=== PATIENT | male | born 1975 | race Caucasian/White ===

== ENCOUNTER 2023-08-30 08:25 | Inpatient (IN) ==
--- NOTE | 2023-08-03 10:00 | PAT Medication Instructions ---
Medication Instructions Date of Service August 03, 2023 Home Medications amlodipine 5 mg tablet 5 mg PO QAM atorvastatin 20 mg tablet 20 mg PO QAM losartan 50 mg-hydrochlorothiazide 12.5 mg tablet 1 tab PO QAM meloxicam 15 mg tablet 15 mg PO QAM multivitamin with minerals-folic acid 200 mcg chewable tablet (Multivitamin Gummies) 1 tab PO QAM pantoprazole 40 mg tablet,delayed release (Protonix) 40 mg PO QAM ASK your surgeon for instructions meloxicam 15 mg tablet 15 mg PO QAM DO NOT take the morning of surgery losartan 50 mg-hydrochlorothiazide 12.5 mg tablet 1 tab PO QAM multivitamin with minerals-folic acid 200 mcg chewable tablet (Multivitamin Gummies) 1 tab PO QAM Take morning of surgery With a small sip of water, OTHERWISE NOTHING TO EAT OR DRINK AFTER MIDNIGHT: amlodipine 5 mg tablet 5 mg PO QAM atorvastatin 20 mg tablet 20 mg PO QAM pantoprazole 40 mg tablet,delayed release (Protonix) 40 mg PO QAM Other Notes If you have any questions please call us at [phone] or [phone] or [phone] or [phone]
--- NOTE | 2023-08-09 11:52 | Anesthesiology Consultation ---
Date of Service August 09, 2023 Assessment & Plan (1) Encounter for pre-operative examination: - PCP pre-operative evaluation 08/14/23 [facility]. Chart Review Chart Review: Pending: Refer to Additional Notes / Consult section and Patient seen in Pre Admission Testing Teaching & Discussion Pre-Anesthesia Teaching/Discussion Notes: Instructed NPO after midnight before surgery, except medications with 15 cc of water. Medication instructions provided according to the PAT guidelines. History Surgery Operation Date: 08/30/23 07:45 Proposed Procedures p L3-L4 and L5-S1 Decompression, L3-S1 Fusion, Spinal Cord Monitoring - Roney Louise DO Height/Weight Height: 5 ft 5 in Weight: 85.7 kg Allergies Allergy/AdvReac Type Severity Reaction Status Date / Time No Known Allergies Allergy Unverified 08/01/23 09:34 Medications Home Medications Medication Instructions Recorded Confirmed Last Taken amlodipine 5 mg tablet 5 mg PO QAM 08/01/23 08/01/23 Unknown atorvastatin 20 mg tablet 20 mg PO QAM 08/01/23 08/01/23 Unknown losartan 50 mg-hydrochlorothiazide 1 tab PO QAM 08/01/23 08/01/23 Unknown 12.5 mg tablet meloxicam 15 mg tablet 15 mg PO QAM 08/01/23 08/01/23 Unknown multivitamin with minerals-folic 1 tab PO QAM 08/01/23 08/01/23 Unknown acid 200 mcg chewable tablet (Multivitamin Gummies) pantoprazole 40 mg tablet,delayed 40 mg PO QAM 08/01/23 08/01/23 Unknown release (Protonix) Past Medical History Medical History GERD (gastroesophageal reflux disease) controlled, stable per pt Hyperlipidemia HTN (hypertension) controlled, stable per pt [place] (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 History of perforated ear drum repaired Patient denies h/o stroke, seizures, heart attack, heart failure, DM, blood cl ots/DVTs or blood transfusions. Exercise / Class Metabolic Activity II 4-5 Yardwork/Stairs/Walk up hill (denies chest discomfort or shortness of breath with 1 FOS) Past Family History Family History Other No family history of adverse response to anesthesia Past Surgical History Surgical History History of surgery left tympanic membrane repair History of esophagogastroduodenoscopy (EGD) History of surgery on wrist radial artery puncture repaired History of lumbar discectomy Hx of arthroscopy of shoulder R/L Past Anesthesia History No Hx of Anesthesia Complications and No Family Hx of Anesthesia Complications History of PONV No Hx of PONV and No Hx of Motion Sickness Social History Smoking Status: Never smoker Do You Dip or Chew Tobacco: No Hx Alcohol Use: Yes alcohol intake frequency: a few times a week Hx Substance Use: No substance use type: does not use Review of Systems Snoring, denies witnessed apneas. Patient denies chest pain, shortness of breath, dyspnea on exertion, fever, chills, cough, wheezing, or palpitations. Physical Exam Vital Signs Vitals BP 133/87 P 86 TEMP 98.2 SP02 96% on RA RESP 17 Physical Patient resting comfortably in chair in no acute distress, alert and oriented, responding appropriately throughout visit Full cervical extension range of motion without pain TMD 3.5 finger breadths Mallampati Score 2 Dentition: intact, denies chipped or loose teeth, caps/crowns, implants or bridges Lungs: normal respiratory effort. Good air movement, clear throughout to auscultation, no adventitious breath sounds Cardiac: regular rate and rhythm, no murmurs noted Carotid arteries: negative bruit bilat Lab Results Anesthesia Preop Results Results Anesthesia Widget: WBC 7.75 K/ul (4.8-10.8) 08/09/23 Hgb 15.9 g/dl (14.0-18.0) 08/09/23 Hct 44.4 % (42.0-52.0) 08/09/23 Plt 223 K/uL (130-400) 08/09/23 PT 11.3 Seconds (9.0-12.0) 08/09/23 PTT 32.4 Seconds (21.0-31.0) H 08/09/23 INR 1.0 (0.9-1.1) 08/09/23 Urine Color Yellow 08/09/23 Urine Appearance Clear (Clear) 08/09/23 Urine pH 6.0 (4.5-7.5) 08/09/23 Urine Specific [place] 1.006 (1.000-1.030) 08/09/23 Urine Protein Negative (Negative) 08/09/23 Urine Glucose (UA) Negative (Negative) 08/09/23 Urine Ketones Negative (Negative) 08/09/23 Urine Blood Negative (Negative) 08/09/23 Urine Nitrite Negative (Negative) 08/09/23 Urine Bilirubin Negative (Negative) 08/09/23 Urine Urobilinogen Negative (Negative) 08/09/23 Urine Leukocyte Esterase Negative (Negative) 08/09/23 Blood Type O Negative 08/09/23 Antibody Screen NEGATIVE 08/09/23 Testing Laboratory Results 07/27/2023 SODIUM: 138 POTASSIUM: 3.7 CHLORIDE: 101 CO2: 25 BUN: 18 CREATININE: 1 GLUCOSE: 87 Electrocardiogram Date: 08/09/23 NSR, rate 83 bpm Chest X-Ray Date: 08/09/23 No active disease in the chest. Other Testing Carotid doppler 03/01/18 Normal evaluation of ICAs
[~2023-08-30 08:25] MED LIST: ACETAMINOPHEN 500 MG TAB PO SCH; CeleBREX 200 MG CAP PO SCH; DEXAMETHASONE SOD INJ 4 MG/ML VIAL ONE; GABAPENTIN 900 MG DOSE PO SCH; LIDOCAINE 2% 2 ML VIAL/AMP(20MG/ML) INFIL ONE; LR 15ML/HR IV SCH; LR 60ML/HR IV SCH; MIDAZOLAM HCL 1 MG/ML 2ML VIAL ONE; ONDANSETRON INJ 2 MG/ML 2 ML VIAL ONE; PROPOFOL IV EMULSION 10 MG/ML 20 ML VIAL IV ONE; fentaNYL citrate PF 100 MCG/2 ML VIAL ONE
[2023-08-30] MEDS ORDERED: SUGAMMADEX SODIUM 200 MG/2 ML VIAL IV ONE (08:52)
--- NOTE | 2023-08-30 09:57 | History & Physical Bridge Note ---
Date of Service August 30, 2023 History & Physical Bridge Note I have examined the patient, reviewed the History & Physical and in the interval since the performance of the History & Physical I have noted the following changes of clinical significance: no changes noted
--- NOTE | 2023-08-30 09:58 | History & Physical Report ---
Date of Service August 30, 2023 Assessment & Plan (1) Neurogenic claudication due to lumbar spinal stenosis: Plan: L3-L4 and L5-S1 decompression, L5-S1 fusion, instrumentation posterior segments 3-6 vertebral segments laminectomy decompression spinal cord single vertebral segment lumbar History of Present Illness Chief Complaint: Back and bilateral leg pain Primary Care Provider: Mundo Luque MD This is a 47-year-old male presents for chronic persistent back and leg pain after failing course of nonoperative care is here for surgical invention. Allergies Allergy/AdvReac Type Severity Reaction Status Date / Time No Known Allergies Allergy Verified 08/30/23 09:07 Home Medications Medication Instructions Recorded Confirmed Type amlodipine 5 mg tablet 5 mg PO QAM 08/01/23 08/30/23 History atorvastatin 20 mg tablet 20 mg PO QAM 08/01/23 08/30/23 History losartan 50 mg-hydrochlorothiazide 1 tab PO QAM 08/01/23 08/30/23 History 12.5 mg tablet meloxicam 15 mg tablet 15 mg PO QAM 08/01/23 08/30/23 History multivitamin with minerals-folic 1 tab PO QAM 08/01/23 08/30/23 History acid 200 mcg chewable tablet (Multivitamin Gummies) pantoprazole 40 mg tablet,delayed 40 mg PO QAM 08/01/23 08/30/23 History release (Protonix) Past Med/Surg History Medical History GERD (gastroesophageal reflux disease) controlled, stable per pt Hyperlipidemia HTN (hypertension) controlled, stable per pt [place] (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 History of perforated ear drum repaired Surgical History History of surgery left tympanic membrane repair History of esophagogastroduodenoscopy (EGD) History of surgery on wrist radial artery puncture repaired History of lumbar discectomy Hx of arthroscopy of shoulder R/L Family History Other No family history of adverse response to anesthesia Social History Smoking Status: Never smoker Second Hand Exposure: No; Do You Dip or Chew Tobacco: No; Tobacco Cessation Education Requested by Patient: No Hx Alcohol Use: Yes Hx Substance Use: No Preferred Language: Danish Communication Ability: Effective Jail Officer Required: No Beliefs That Will Affect Care: None Current Living Situation: Spouse Other Information That Helps Us Care for You: No Feels Safe at Home: Yes Safety Concerns: Feels Safe At This Time Assistive Devices: Glasses and Hearing Aid - Bilateral Assistive Devices Comment: deaf in his left ear Physical Exam Physical Exam: Patient is alert and oriented Heart regular rhythm Lungs clear Results & Data Results & Data Vital Signs (Past 12 Hours) Vital Signs Temp Pulse Resp BP Pulse Ox O2 Del Method 08/30/23 08:49 36.5 C 95 H 20 151/93 H 96 Room Air
[2023-08-30] MEDS ORDERED: ceFAZolin 330 MG/ML 1 GM VIAL ONE (10:13)
[2023-08-30] MEDS ORDERED: BUPIVACAINE/EPINEPHRINE 0.25% 1:200,000 30 ML VIAL ONE (10:13)
[2023-08-30] MEDS ORDERED: Nursing to Pharmacy Communication SCH (10:15)
[2023-08-30] MEDS: ceFAZolin 2,000 MG/15 ML IV PUSH IV ONE (10:20)
[2023-08-30] MEDS ORDERED: NALOXONE HCL 0.4 MG/1 ML VIAL/CARP IV PRN ×2 (10:42→14:09)
[2023-08-30] MEDS ORDERED: HYDROmorphone INJ 1 MG/ML SYRINGE IV PRN ×2 (10:42→14:09)
[2023-08-30] MEDS ORDERED: ATROPINE SULFATE 0.1 MG/ML 10ML SYR IV PRN (10:42)
[2023-08-30] MEDS ORDERED: PROMETHAZINE HCL 12.5 MG in SODIUM CHLORIDE 0.9% 50 ML IV PRN ×2 (10:42→14:09)
[2023-08-30] MEDS ORDERED: fentaNYL citrate PF 100 MCG/2 ML VIAL IV PRN (10:42)
[2023-08-30] MEDS ORDERED: ePHEDrine sulfate 50 MG/ML AMP IV PRN (10:42)
[2023-08-30] MEDS ORDERED: ONDANSETRON INJ 2 MG/ML 2 ML VIAL IV PRN ×2 (10:42→14:09)
[2023-08-30] MEDS ORDERED: FLUMAZENIL 0.1 MG/1 ML 10 ML VIAL IV PRN (10:42)
[2023-08-30] MEDS ORDERED: LABETALOL HCL IV 5 MG/ML 20ML IV PRN (10:42)
[2023-08-30] MEDS ORDERED: FLOSEAL HEMOSTATIC MATRIX 10ML TOP ONE (10:59)
[2023-08-30] MEDS ORDERED: ceFAZolin 2000MG 2,000 MG/15 ML SYR IV ONE (11:03)
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
--- OUTSIDE RECORDS SUMMARY | 2023-08-30 11:53 | External Medical Summary | Summary of Care ---
Author Name Unknown Organization [facility] Address [address] [facility] [place] [address] Phone [phone] Care Team Providers Care Director Emergency Services Name Role Phone Mundo Luque MD Primary Care Provider Encounter Details Date Type Department Care Team (Late st Contact Info) Description 08/14/2023 Telephone [facility] [address] [place] [phone] Patsy Ramírez MD [facility] [place] [id number] Allergies No known active allergiesdocumented as of [...] on file documented as of this encounter Miscellaneous Notes * Telephone Encounter - Arelis Mak OSA - 08/15/2023 10:29 AM EST Pre op note as requested to [phone] Fax back ok * Telephone Encounter - Patsy Ramírez MD - 08/15/2023 10:22 AM EST Reviewed. Please fax preop clearance note 08/14/23 to [facility] * Telephone Encounter - Meron Rubio OSA - 08/15/2023 10:00 AM EST Received via fax and given to Dr. Ramírez for review. * Telephone Encounter - Kimber Ferreira LPN - 08/15/2023 8:41 AM EST Spoke to preadmission testing at [facility]. They will fax over results to [phone]. * Telephone Encounter - Patsy Ramírez MD - 08/14/2023 3:51 PM EST Please get preop EKG/chest Xray/labs results (done at [facility] last week) and place it on my desk. documented in this encounter Plan of Treatment Upcoming Encounters Date Type Department Care Team (Late st Contact Info) Description 11/23/2023 11:00 AM EST Office Visit Otolaryngology/Head & Neck/Facial Plastic Surgery [address] [place] [address] Naga Weiss MD [address] [place] [address] 08/02/2024 2:40 PM EST Office Visit [facility] [address] [place] [id number] Mundo Luque MD [address] [place] [address] Health Maintenance Due Date Last Done Comments [...] Not on filedocumented as of this encounter Care Teams Director Emergency Services Relationship Specialty Start Date End Date Mundo Luque MD [address] [place] [id number] PCP - General Family Medicine 09/27/21 documented as of this encounter
[2023-08-30] MEDS ORDERED: ALBUMIN HUMAN 5% 12.5 GM/250 ML VIAL IV ONE (12:20)
[2023-08-30] MEDS ORDERED: HYDROmorphone INJ 2 MG/ML SYR/VIAL ONE (12:47)
--- NOTE | 2023-08-30 12:49 | Operative Report ---
Post Operative Report Pre & Post Diagnosis Operation Date: 08/30/23 10:05 Pre-Op Diagnosis: Neurogenic claudication due to lumbar spinal stenosis Post-Op Diagnosis: Neurogenic claudication due to lumbar spinal stenosis I identified the patient and participated in the time-out.: Yes Procedure Operation Date: 08/30/23 10:05 Actual Procedures #1 revision lumbar decompression bilateral medial facetectomies and foraminotomies of to L3, L3-L4, L4-5 and L5-S1. #2 posterior spinal fusion L3- S1. #3 placed posterior segmental instrumentation L3-S1. #4 interbody fusion L3-L4 L5-S1. #5 placement Spira 12 x 26 mm at L3-L4 and 11 x 26 mm x 2 at L5- S1. #6 placement locally harvested morselized autograft in the posterior gutters. #7 placement of I factor in the interbody space and infuse collagen sponge combined with master graft in the posterior lateral gutters. Surgeon Roney Louise, DO Tripper Faye Colón Estimated Blood Loss 350 Findings See Below The patient is 5 foot 5 weighing over 84 kg with a BMI in excess of 31. Patient's body was did contribute to significant technical difficulty required deeper retractors longer instruments in order to perform his procedure. This at least 50% increased operative time. Specimens None Indications This is a 47-year-old male who presents above-mentioned diagnosis after failing conservative course of nonoperative care is here for surgical invention. Description of Procedure Patient was met with identified informed consent obtained. Patient was then taken to the operative suite underwent patient placed in a prone position on the Will table atop the Fadi frame. All bony promises well-padded eyes inspected to ensure no external pressure placed upon the. This point lumbar spine was prepped and draped in a sterile fashion. Sharp dissection with assistance bradycardia from down to and exposing the lamina and transverse processes of L3 L4-5 and the sacral ala bilaterally. From caudal cephalad fashion revision complete laminectomy of L5 4 3 partial laminectomy of L2 was performed including bilateral medial facetectomies and foraminotomies addressing severe spinal stenosis. Bilateral pars defect at L3 was noted. Pedicle screws were then placed at L3 L4-5 and S1 levels bilaterally with assistance of fluoroscopy and the appropriately sized martha placed. By way the transforaminal approach the left discectomy of L5-S1 was performed endplates guided to subcortical bleeding bone and a 11 x 26 mm Spira cage with I factor tapped in position. Then proceeded to the right side transforaminal approach completed the discectomy at L5-S1 curetted the endplates to subcortical bleeding bone and placed a second 11 x 26 mm Spira cage with I factor into position. Then proceeded to L3-L4 and by way of transforaminal approach and right complete discectomy was performed endplates guided to subcortical bleeding bone and a 12 x 26 mm Spira cage with I factor tapped the position. The rods were then locked in final position bilaterally. The transverse processes of L3 L4-5 and the sacral ala burred to subcortical bleeding bone. Infuse collagen sponge, mass graft local autograft was placed in the posterior gutters. 15 round TIFFANIE drain inserted. The incision was then closed with 1 Vicryl the fascia 2-0 Vicryl subcutaneously and 4 Monocryl for final skin closure. Steri-Strips dressing placed. Patient waken taken to PACU stable condition. Please note spinal cord monitoring was utilized at the procedure no changes noted. Lastly Faye Colón was present at the entire surgeon while the patient positioning complex portion of the surgery and final skin closure. I attest to the content of the Intraoperative Record and any orders documented therein. Any exceptions are noted below.
--- NOTE | 2023-08-30 13:01 | Fluoroscopy Report ---
FL lumbar spine 2-3V CLINICAL HISTORY: L3-L4 AND L5-S1 DECOMPRESSION AND FUSION COMPARISON STUDY: 02/24/2014 FLUOROSCOPY TIME: 31.3 seconds FLUOROSCOPY IMAGES: 2 EXPOSURE DOSE: 21.49 mGy FINDINGS: Posterior interbody rods and screw fusion hardware L3-S1 with L3-L4 and L5-S1 discectomy. H ardware appears intact. No acute fracture or unexpected opaque foreign body. IMPRESSION: Fluoroscopic assistance as above. ACT 112: Negative or not required by law. Electronically signed by: Aquiles Haywood M.D. 08/30/2023 12:59 PM
[2023-08-30] MEDS ORDERED: ALUMINUM/MAGNESIUM SUSP 30 ML UDC PO PRN (14:09)
[2023-08-30] MEDS ORDERED: HYDROmorphone INJ 0.5 MG/0.5 ML SYR IV PRN (14:09)
[2023-08-30] MEDS ORDERED: ONDANSETRON 4 MG OD TAB PO PRN (14:09)
[2023-08-30] MEDS ORDERED: LORazepam 0.5 MG TAB PO PRN (14:09)
[2023-08-30] MEDS ORDERED: SOD PHOSPHATE/SOD BIPHOSPHATE ENEMA 132 ML BTL PR PRN (14:09)
[2023-08-30] MEDS ORDERED: METOCLOPRAMIDE HCL INJ 5 MG/ML 2 ML VIAL IV PRN (14:09)
[2023-08-30] MEDS ORDERED: DO NOT ADMINISTER FLU VACCINE PRN (14:09)
[2023-08-30] MEDS ORDERED: MAGNESIUM HYDROXIDE SUSP 30 ML UDC PO PRN (14:09)
[2023-08-30] MEDS ORDERED: ACETAMINOPHEN 1,000 MG/100 ML VIAL IV PRN (14:09)
[2023-08-30] MEDS ORDERED: hydrOXYzine HCl 25 MG TAB PO PRN (14:09)
[2023-08-30] MEDS ORDERED: bisacodyL 10 MG SUPP PR PRN (14:09)
[2023-08-30] MEDS ORDERED: ACETAMINOPHEN 500 MG TAB PO PRN (14:09)
[2023-08-30] MEDS ORDERED: DO NOT ADMINISTER PNEUMOCOCCAL VACCINE PRN (14:09)
[2023-08-30] MEDS ORDERED: diphenhydrAMINE Capsule 25 MG CAP PO PRN (14:09)
[2023-08-30] MEDS ORDERED: LORazepam 0.5 MG in SYRINGE 0.25 ML IV PRN (14:09)
[2023-08-30] MEDS ORDERED: FAMOTIDINE 20 MG TAB PO PRN (14:09)
[2023-08-30] MEDS: LACTATED RINGER'S 1,000 ML IV SCH ×2 (14:32→21:26)
--- NOTE | 2023-08-30 15:33 | Hospitalist Consultation ---
Date of Consultation August 30, 2023 Assessment & Plan (1) Neurogenic claudication due to lumbar spinal stenosis: Status post L3-L4 and L5-S1 decompression, L3-S1 fusion and spinal cord monitoring on 08/30/2023 Acceptable amount of blood loss Still draining bloody fluid Management will be as per Ortho PT OT evaluation as per Ortho Will check CBC and electrolytes (2) HTN (hypertension): Blood pressure remains stable Will continue current medications (3) Hyperlipidemia: Has been on statin (4) GERD (gastroesophageal reflux disease): Has been on PPI DVT prophylaxis As per Ortho CODE STATUS Full Remains medically stable [facility] hospitalist will follow History of Present Illness Reason for Consultation: Medical management following lumbar procedure Requesting Physician: Dr. oLuise Attending Physician: Roney Louise, DO History of Present Illness Is a 47-year-old male with significant past medical history of hypertension, hyperlipidemia and also GERD apparently underwent L3-L4 and L5-S1 decompression, L3-S1 fusion and spinal cord monitoring by Dr. Louise on 08/30/2023 He has been complaining of back pain and also and also numbness and tingling involving the lower extremities. Denies any chest pain, palpitation, shortness of breath. No abdominal pain, nausea or vomiting. And denies any problem with urine or bowel habit and has a Beaulieu catheter in place. Allergies Allergy/AdvReac Type Severity Reaction Status Date / Time No Known Allergies Allergy Verified 08/30/23 09:07 Home Medications Medication Instructions Recorded Confirmed Type amlodipine 5 mg tablet 5 mg PO QAM 08/01/23 08/30/23 History atorvastatin 20 mg tablet 20 mg PO QAM 08/01/23 08/30/23 History losartan 50 mg-hydrochlorothiazide 1 tab PO QAM 08/01/23 08/30/23 History 12.5 mg tablet meloxicam 15 mg tablet 15 mg PO QAM 08/01/23 08/30/23 History multivitamin with minerals-folic 1 tab PO QAM 08/01/23 08/30/23 History acid 200 mcg chewable tablet (Multivitamin Gummies) pantoprazole 40 mg tablet,delayed 40 mg PO QAM 08/01/23 08/30/23 History release (Protonix) Patient History Medical History (Updated 08/30/23 @ 15:30 by Lefty Vincent MD) GERD (gastroesophageal reflux disease) controlled, stable per pt Hyperlipidemia HTN (hypertension) controlled, stable per pt [place] (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 History of perforated ear drum repaired Surgical History History of surgery left tympanic membrane repair History of esophagogastroduodenoscopy (EGD) History of surgery on wrist radial artery puncture repaired History of lumbar discectomy Hx of arthroscopy of shoulder R/L Family History Other No family history of adverse response to anesthesia Social History Smoking Status: Never smoker Second Hand Exposure: No; Do You Dip or Chew Tobacco: No; Tobacco Cessation Education Requested by Patient: No Hx Alcohol Use: Yes Hx Substance Use: No Preferred Language: Lithuanian Communication Ability: Effective Food Technician Required: No Beliefs That Will Affect Care: None Current Living Situation: Spouse Other Information That Helps Us Care for You: No Feels Safe at Home: Yes Safety Concerns: Feels Safe At This Time Assistive Devices: Glasses and Hearing Aid - Bilateral Assistive Devices Comment: deaf in his left ear Review of Systems Review of Systems: All systems reviewed and are unremarkable except as noted below Physical Exam Physical Exam: Lying in bed comfortably Constitutional: well developed, well nourished, + ill appearing and + obese Eyes: PERRL, conjunctivae normal, anicteric sclerae ENMT: external ear and nose normal, oropharynx normal Neck: trachea midline, no thyromegaly Respiratory: no respiratory distress Auscultation: lungs clear to auscultation bilaterally Cardiovascular: Rate/Rhythm: regular rate and regular rhythm; not tachycardic Heart Sounds: normal S1 and normal S2; no murmur Extremities: no edema Gastrointestinal (Abdomen): Inspection/Auscultation: normal bowel sounds; abdomen not distended Percussion/Palpation: abdomen soft; abdomen nontender Musculoskeletal: Has back pain status post back surgery but denies any acute arthritis involving any of the joint Neurologic: moves all extremities; + abnormal touch/pain/proprioception (Numbness and tingling in the lower extremities) Lymphatic: no cervical or axillary lymphadenopathy Results & Data Results & Data Vital Signs (Past 12 Hours) Vital Signs Temp Pulse Pulse Resp BP Pulse Ox O2 Del Method 08/30/23 15:13 36.6 C 93 H 16 106/68 92 Room Air 08/30/23 14:39 92 H 18 114/77 98 Room Air 08/30/23 14:09 36.5 C 92 H 18 103/70 99 Nasal Cannula 08/30/23 13:55 96 H 16 123/94 96 Nasal Cannula 08/30/23 13:45 36.2 C L 93 H 12 103/73 95 Nasal Cannula 08/30/23 13:35 94 H 12 133/72 98 Room Air 08/30/23 13:25 97 H 16 135/81 100 Oxymask 08/30/23 13:15 95 H 12 121/74 100 Oxymask 08/30/23 13:05 36.7 C 96 H 12 109/70 100 Oxymask 08/30/23 08:49 36.5 C 95 H 20 151/93 H 96 Room Air O2 Flow Rate 08/30/23 15:13 08/30/23 14:39 08/30/23 14:09 1 08/30/23 13:55 2 08/30/23 13:45 2 08/30/23 13:35 08/30/23 13:25 11 08/30/23 13:15 11 08/30/23 13:05 11 08/30/23 08:49 Medications Administered Current Inpatient Medications Acetaminophen (Acetaminophen 500 Mg Tab) 1,000 mg PO PREOP ADRIANA Stop: 08/30/23 18:00 Last Admin: 08/30/23 09:12 Dose: 1,000 mg Acetaminophen (Acetaminophen 500 Mg Tab) 1,000 mg PO Q8H PRN PRN Reason: MILD Pain Scale 1,2,3 & Pre PT Stop: 09/29/23 14:08 Al Hydrox/Mg Hydrox/Simethicone (Aluminum/Magnesium Susp 30 Ml Udc) 30 ml PO Q6H PRN PRN Reason: Dyspepsia Stop: 09/29/23 14:08 Amlodipine Besylate (Amlodipine Besylate 5 Mg Tab) 5 mg PO QAM ADRIANA Stop: 09/30/23 08:59 Atorvastatin Calcium (Atorvastatin 20 Mg Tab) 20 mg PO QAM ADRIANA Stop: 09/30/23 08:59 Atropine Sulfate (Atropine Sulfate 0.1 Mg/Ml 10ml Syr) 0.5 mg IV Q1M PRN PRN Reason: PACU Use-HR<40 &/or Bradycardi Stop: 08/30/23 18:42 Bisacodyl (Bisacodyl 10 Mg Supp) 10 mg [place] DAILY PRN PRN Reason: Constipation Stop: 09/29/23 14:08 Celecoxib (Celebrex 200 Mg Cap) 200 mg PO PREOP ADRIANA Stop: 08/30/23 18:00 Last Admin: 08/30/23 09:13 Dose: 200 mg Diphenhydramine HCl (Diphenhydramine Capsule 25 Mg Cap) 25 mg PO Q6H PRN PRN Reason: Allergic Rhinitis/Insomnia Stop: 09/29/23 14:08 Ephedrine Sulfate (Ephedrine Sulfate 50 Mg/Ml Amp) 5 mg IV Q5M PRN PRN Reason: PACU Use Only-SBP<90 mmHg Stop: 08/30/23 18:42 Famotidine (Famotidine 20 Mg Tab) 20 mg PO Q12H PRN PRN Reason: Dyspepsia Stop: 09/29/23 14:08 Fentanyl Citrate (Fentanyl Citrate Pf 100 Mcg/2 Ml Vial) 25 mcg IV Q5M PRN PRN Reason: PACU Use Only-Pain Stop: 08/30/23 18:42 Last Admin: 08/30/23 13:38 Dose: 25 mcg Flumazenil (Flumazenil 0.1 Mg/1 Ml 10 Ml Vial) 0.2 mg IV Q2M PRN PRN Reason: PACU Use Only-Benzo Reversal Stop: 08/30/23 18:42 Gabapentin (Gabapentin 900 Mg Dose) 900 mg PO PREOP ADRIANA Stop: 08/30/23 18:00 Last Admin: 08/30/23 09:12 Dose: 900 mg HCTZ/Losartan Potassium (Losartan/Hctz 50/12.5mg Tab) 1 tab PO QAM ADRIANA Stop: 09/30/23 08:59 Hydromorphone HCl (Hydromorphone Inj 1 Mg/Ml Syringe) 0.25 mg IV Q5M PRN PRN Reason: PACU Use Only-Pain Stop: 08/30/23 18:42 Hydromorphone HCl (Hydromorphone Inj 0.5 Mg/0.5 Ml Syr) 0.5 mg IV Q3H PRN PRN Reason: MODERATE Pain (Scale 4,5,6) & Pre PT Stop: 09/13/23 14:08 Hydromorphone HCl (Hydromorphone Inj 1 Mg/Ml Syringe) 1 mg IV Q3H PRN PRN Reason: SEVERE Pain (Scale 7,8,9,10) Stop: 09/13/23 14:08 Hydroxyzine HCl (Hydroxyzine Hcl 25 Mg Tab) 25 mg PO Q8H PRN PRN Reason: Anxiety Stop: 09/29/23 14:08 Lactated Ringer's (Lr) 1,000 mls @ 15 mls/hr IV .Q24H ADRIANA Stop: 08/31/23 05:59 Last Infusion: 08/30/23 10:17 Dose: Infused Lactated Ringer's (Lr) 1,000 mls @ 60 mls/hr IV .[id number] ADRIANA Stop: 08/30/23 22:39 Last Admin: 08/30/23 09:09 Dose: Not Given Promethazine HCl 12.5 mg/ (Sodium Chloride) 50.5 mls @ 204 mls/hr IV ONCE PRN PRN Reason: PACU Use Only-Nausea/Vomiting Stop: 08/30/23 18:42 Lactated Ringer's (Lr) 1,000 mls @ 150 mls/hr IV .[id number] ADRIANA Stop: 09/29/23 14:08 Last Admin: 08/30/23 14:32 Dose: 150 mls/hr Promethazine HCl 12.5 mg/ (Sodium Chloride) 50.5 mls @ 202 mls/hr IV Q6H PRN PRN Reason: Nausea &/or Vomiting Stop: 09/29/23 14:08 Acetaminophen (Ofirmev) 1,000 mg in 100 mls @ 400 mls/hr IV Q8H PRN PRN Reason: Pain Rating 1-3 & Pre PT Stop: 08/31/23 14:10 Cefazolin Sodium (Ancef 2000mg) 2,000 mg in 15 mls @ 3.75 mls/min IV Q8H ADRIANA; Protocol Stop: 08/31/23 03:03 Lorazepam 0.5 mg/ Syringe 0.5 mls @ 2 mls/min IV Q8H PRN; Protocol PRN Reason: Sedation/Anxiety Stop: 09/29/23 14:08 Dexamethasone 6 mg/ Syringe 1.5 mls @ 1 mls/min IV DAILY ADRIANA Stop: 09/02/23 09:02 Influenza Virus Vaccine Quadrival (Do Not Administer Flu Vaccine) 1 each N/A PRN PRN PRN Reason: Notification Stop: 09/29/23 14:08 Labetalol HCl (Labetalol Hcl Iv 5 Mg/Ml 20ml) 5 mg IV Q5M PRN PRN Reason: PACU Use-SBP>160 or DBP>100 Stop: 08/30/23 18:42 Lorazepam (Lorazepam 0.5 Mg Tab) 0.5 mg PO Q8H PRN PRN Reason: Sedation/Anxiety Stop: 09/29/23 14:08 Magnesium Hydroxide (Magnesium Hydroxide Susp 30 Ml Udc) 30 ml PO Q24H PRN PRN Reason: Constipation Stop: 09/29/23 14:08 Metoclopramide HCl (Metoclopramide Hcl Inj 5 Mg/Ml 2 Ml Vial) 10 mg IV Q6H PRN PRN Reason: Nausea &/or Vomiting Stop: 09/29/23 14:08 Naloxone HCl (Naloxone Hcl 0.4 Mg/1 Ml Vial/Carp) 0.2 mg IV Q2M PRN PRN Reason: PACU Use Only-Opiate Reversal Stop: 08/30/23 18:42 Naloxone HCl (Naloxone Hcl 0.4 Mg/1 Ml Vial/Carp) 0.1 mg IV Q5M PRN PRN Reason: Oversedation/Resp depression Stop: 09/29/23 14:08 Ondansetron HCl (Ondansetron Inj 2 Mg/Ml 2 Ml Vial) 4 mg IV ONCE PRN PRN Reason: PACU Use Only-Nausea/Vomiting Stop: 08/30/23 18:42 Ondansetron HCl (Ondansetron Inj 2 Mg/Ml 2 Ml Vial) 4 mg IV Q6H PRN PRN Reason: Nausea &/or Vomiting Stop: 09/29/23 14:08 Ondansetron HCl (Ondansetron 4 Mg Od Tab) 4 mg PO Q6H PRN PRN Reason: Nausea Stop: 09/29/23 14:08 Oxycodone HCl (Oxycodone Hcl Ir 5 Mg Tab (Immediate Release)) 5 - 10 mg PO Q4H PRN PRN Reason: Pain & Pre PT Stop: 09/13/23 14:08 Pantoprazole Sodium (Pantoprazole 40 Mg Tab) 40 mg PO QAM [facility] Stop: 09/30/23 08:59 Pneumococcal Polyvalent Vaccine (Do Not Administer Pneumococcal Vaccine) 1 each N/A PRN PRN PRN Reason: Notification Stop: 09/29/23 14:08 Polyethylene Glycol (Polyethylene (Miralax) 17 Gm Pack) 17 gm PO Q6 ADRIANA Stop: 09/30/23 05:59 Senna/Docusate Sodium (Docusate Sodium/Senna 50/8.6mg Tab) 2 tab PO HS ADRIANA Stop: 09/29/23 20:59 Sodium Biphosphate/Sodium Phosphate (Sod Phosphate/Sod Biphosphate Enema 132 Ml Btl) 132 ml [place] ONE PRN PRN Reason: Constipation Stop: 09/29/23 14:08 Tramadol HCl (Tramadol Hcl 50 Mg Tablet) 50 - 100 mg PO Q4H PRN PRN Reason: Moderate-Severe pain & Pre PT Stop: 09/29/23 14:08
--- NOTE | 2023-08-30 15:48 | Anesthesiology Progress Note ---
Date of Service August 30, 2023 Anesthesia Post Procedure Vital Signs Vital Signs: Temp Pulse Pulse Resp BP Pulse Ox O2 Del Method 08/30/23 15:13 36.6 C 93 H 16 106/68 92 Room Air 08/30/23 14:39 92 H 18 114/77 98 Room Air 08/30/23 14:09 36.5 C 92 H 18 103/70 99 Nasal Cannula 08/30/23 13:55 96 H 16 123/94 96 Nasal Cannula 08/30/23 13:45 36.2 C L 93 H 12 103/73 95 Nasal Cannula 08/30/23 13:35 94 H 12 133/72 98 Room Air 08/30/23 13:25 97 H 16 135/81 100 Oxymask 08/30/23 13:15 95 H 12 121/74 100 Oxymask 08/30/23 13:05 36.7 C 96 H 12 109/70 100 Oxymask 08/30/23 08:49 36.5 C 95 H 20 151/93 H 96 Room Air O2 Flow Rate 08/30/23 15:13 08/30/23 14:39 08/30/23 14:09 1 08/30/23 13:55 2 08/30/23 13:45 2 08/30/23 13:35 08/30/23 13:25 11 08/30/23 13:15 11 08/30/23 13:05 11 08/30/23 08:49 Pain Intensity Lower Back: Pain Intensity: 2 Back: Pain Intensity: 5 Transfer of Care Handoff Completed per policy Notes Mental Status: alert / awake / arousable and participated in evaluation Patient Amnestic to Procedure: Yes Nausea / Vomiting: adequately controlled Pain: adequately controlled Airway Patency, RR, SpO2: stable & adequate BP & HR: stable & adequate Hydration State: stable & adequate Anesthetic Complications: no major complications apparent and Pt Satisfied with anesthetic care
[2023-08-30] MEDS: oxyCODONE HCL IR 5 MG TAB (IMMEDIATE RELEASE) PO PRN (17:09)
[2023-08-30] MEDS: ceFAZolin 2000MG 2,000 MG/15 ML SYR IV SCH (19:50)
[2023-08-30] MEDS: DOCUSATE SODIUM/SENNA 50/8.6MG TAB PO SCH (19:53)
[2023-08-30] MEDS: traMADol HCL 50 MG TABLET PO PRN (19:54)
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
[2023-08-31] MEDS: LACTATED RINGER'S 1,000 ML IV SCH (03:31)
[2023-08-31] MEDS: ceFAZolin 2000MG 2,000 MG/15 ML SYR IV SCH (03:31)
[2023-08-31] MEDS: POLYETHYLENE (MIRALAX) 17 GM PACK PO SCH ×3 (05:59→17:51)
[2023-08-31 06:10] LABS: Basophils # (auto) 0.03 K/uL (0.00-0.20); Basophils % (auto) 0.2 %; Eosinophils # (auto) 0.01 K/uL (0.00-0.50); Eosinophils % (auto) 0.1 %; Hematocrit (blood only) 34.1 % (42.0-52.0); Hemoglobin 11.9 g/dl (14.0-18.0); Immature Granulocytes % (auto) 0.7 %; Lymphocytes # (auto) 0.96 K/uL (1.20-3.40); Lymphocytes % (auto) 6.3 %; Mean Corpuscular Hemoglobin 29.3 pg (25.0-34.0); Mean Corpuscular Hgb Conc 34.9 g/dL (32.0-36.0); Mean Platelet Volume 10.3 fL (9.4-12.4); Monocytes # (auto) 1.69 K/uL (0.11-0.59); Monocytes % (auto) 11.1 %; Neutrophils # (auto) 12.49 K/uL (1.40-6.50); Neutrophils % (auto) 81.6 %; Platelet Count 199 K/uL (130-400); RDW Coefficient of Variation 11.8 % (11.5-14.5); RDW Standard Deviation 35.9 fL (36.4-46.3); Red Blood Count 4.06 M/uL (4.70-6.10); White Blood Count 15.28 K/ul (4.8-10.8)
[2023-08-31 06:25] LABS: BUN Creatinine Ratio 14.9 (10-20); Calcium 8.6 mg/dl (8.6-10.3); Creatinine Clr Calc Pharmacy 107.4 ml/min; Est GFR (African American) 120.8 ml/min; Est GFR (Non-African American) 104.2 ml/min; Potassium 3.6 mmol/L (3.5-5.1)
[2023-08-31] MEDS: dexAMETHasone 6 MG in SYRINGE 0 ML IV SCH (07:51)
[2023-08-31] MEDS: traMADol HCL 50 MG TABLET PO PRN (07:58)
[2023-08-31] MEDS ORDERED: LOSARTAN/HCTZ 50/12.5MG TAB PO SCH (09:00)
[2023-08-31] MEDS: PANTOprazole 40 MG TAB PO SCH (09:12)
[2023-08-31] MEDS: ATORVASTATIN 20 MG TAB PO SCH (09:12)
[2023-08-31] MEDS: amLODIPine BESYLATE 5 MG TAB PO SCH (10:18)
--- NOTE | 2023-08-31 10:34 | Orthopedic Progress Note ---
Date of Service August 31, 2023 Assessment & Plan (1) Neurogenic claudication due to lumbar spinal stenosis: Plan: At this time we will continue physical therapy monitor his TIFFANIE output hopefully discharge home in the next few days. Admission and Anticipated Discharge Date Admission Date: August 30, 2023 Subjective Back pain controlled tolerating physical therapy. Some numbness to the right foot. Physical Exam Physical Exam: Patient is in the chair at the bedside. Is comfortable. Is good strength testing. Results & Data Vital Signs (Past 12 Hours) Vital Signs Temp Pulse Resp BP Pulse Ox O2 Del Method 08/31/23 10:19 108 H 138/84 98 Room Air 08/31/23 06:43 36.3 C L 93 H 16 123/80 98 Room Air 08/31/23 03:32 36.6 C 94 H 15 111/70 97 Room Air 08/30/23 22:41 36.8 C 89 18 122/71 97 Room Air
--- NOTE | 2023-08-31 11:36 | Hospitalist Progress Note ---
Date of Service August 31, 2023 Assessment & Plan (1) Neurogenic claudication due to lumbar spinal stenosis: Plan: Status post L3-L4 and L5-S1 decompression, L3-S1 fusion and spinal cord monitoring on 08/30/2023 Per ortho for pain control, wound care, anticoagulation and activities Transient episode of nausea and near syncope last evening that has resolved Post op blood loss anemia Hgb 11.9 today (pre-op hgb 15.9) Tachycardic but denies lightheadedness, CP, SOB Continue to monitor with daily CBC (2) HTN (hypertension): Plan: Blood pressure remains stable Held AM dose of losartan-hctz this morning given transient hypotension overnight Continue to monitor and resume as able (3) Hyperlipidemia: Plan: Has been on statin (4) GERD (gastroesophageal reflux disease): Plan: Has been on PPI DVT prophylaxis As per Ortho CODE STATUS Full Patient seen in collaboration with Dr. Ocampo. Please see addendum. Thank you for this consultation. We will follow the patient with you during their hospital stay. You can reach a member of the [facility] Team 10/04 via [employer]. Admission and Anticipated Discharge Date Admission Date: August 30, 2023 Supervising Physician Co-Signing Physician Notes Pt seen and examined by myself, Ana Ocampo MD on the day of service. Care was coordinated with Raya Rodriguez PA-C. 47yoM seen post-op after decompression and fusion spinal surgery. Denied acute concerns. RRR, breath sounds clear, clean bandage over lower back. Monitor postop hgb, pain control DVT prophylaxis per primary team. Otherwise as above Subjective Patient seen and examined in 312 in follow-up for L3-S1 decomp fusion by Dr. Louise. [place] nauseous late last evening with associated hypotension that improved when he laid back down, IV fluids were continued. Feeling much better today and participated with therapy, able to ambulate in the hallways. [place] catheter just removed. Having some surgical pain but comfortable at rest and bedside chair right now. Denies any fever, chills, lightheadedness, chest pain, shortness of breath, nausea, vomiting, abdominal pain, dysuria. Passing flatus but no postop bowel movement yet. Review of Systems Review of Systems: At least ten systems reviewed and negative except as noted in the HPI. Physical Exam Physical Exam: Gen: WD/WN, NAD, sitting in bedside chair, A&Ox3 HEENT: Normocephalic, atraumatic, conjunctivae moist, sclerae anicteric, mucous membranes moist Lung: Clear to Auscultation bilaterally, no wheezes/rales/rhonchi Heart: Tachycardic rate, regular rhythm, no murmurs, rubs, or gallops Abdomen: Soft, NT, ND +BS x 4 Extremities: +Spinal surgical dressing c/d/i. TIFFANIE drain visualized, no edema Skin: Warm, no rash Results & Data Results & Data Vital Signs (Past 12 Hours) Vital Signs Temp Pulse Resp BP Pulse Ox O2 Del Method 08/31/23 10:19 108 H 138/84 98 Room Air 08/31/23 06:43 36.3 C L 93 H 16 123/80 98 Room Air 08/31/23 03:32 36.6 C 94 H 15 111/70 97 Room Air Laboratory Results Short CBC 08/31/23 Range/Units 05:47 WBC 15.28 H (4.8-10.8) K/ul Hgb 11.9 L (14.0-18.0) g/dl Hct 34.1 L (42.0-52.0) % Plt Count 199 (130-400) K/uL BMP 08/31/23 05:47 Sodium 137 Potassium 3.6 Chloride 104 Carbon Dioxide 26 BUN 13 Creatinine 0.87 Glucose 138 H Calcium 8.6 Diagnostic Findings Lumbar Spine X-Ray 08/30/23 10:05 FL lumbar spine 2-3V CLINICAL HISTORY: L3-L4 AND L5-S1 DECOMPRESSION AND FUSION COMPARISON STUDY: 02/24/2014 FLUOROSCOPY TIME: 31.3 seconds FLUOROSCOPY IMAGES: 2 EXPOSURE DOSE: 21.49 mGy FINDINGS: Posterior interbody rods and screw fusion hardware L3-S1 with L3-L4 and L5-S1 discectomy. Hardware appears intact. No acute fracture or unexpected opaque foreign body. IMPRESSION: Fluoroscopic assistance as above. ACT 112: Negative or not required by law. Electronically signed by: Aquiles Haywood M.D. 08/30/2023 12:59 PM
[2023-08-31] MEDS: oxyCODONE HCL IR 5 MG TAB (IMMEDIATE RELEASE) PO PRN ×2 (14:47→21:24)
[2023-08-31] MEDS: DOCUSATE SODIUM/SENNA 50/8.6MG TAB PO SCH (21:24)
[2023-09-01] MEDS: POLYETHYLENE (MIRALAX) 17 GM PACK PO SCH ×2 (00:18→05:43)
[2023-09-01] MEDS: oxyCODONE HCL IR 5 MG TAB (IMMEDIATE RELEASE) PO PRN ×2 (05:40→13:30)
[2023-09-01 06:29] LABS: Basophils # (auto) 0.03 K/uL (0.00-0.20); Basophils % (auto) 0.2 %; Eosinophils # (auto) 0.06 K/uL (0.00-0.50); Eosinophils % (auto) 0.4 %; Hematocrit (blood only) 35.1 % (42.0-52.0); Hemoglobin 12.1 g/dl (14.0-18.0); Immature Granulocytes # (auto) 0.11 K/uL (0.01-0.20); Immature Granulocytes % (auto) 0.8 %; Lymphocytes # (auto) 1.79 K/uL (1.20-3.40); Lymphocytes % (auto) 12.3 %; Mean Corpuscular Hemoglobin 29.7 pg (25.0-34.0); Mean Corpuscular Hgb Conc 34.5 g/dL (32.0-36.0); Mean Platelet Volume 10.5 fL (9.4-12.4); Monocytes # (auto) 1.74 K/uL (0.11-0.59); Neutrophils # (auto) 10.81 K/uL (1.40-6.50); Neutrophils % (auto) 74.3 %; Platelet Count 217 K/uL (130-400); RDW Coefficient of Variation 11.9 % (11.5-14.5); Red Blood Count 4.08 M/uL (4.70-6.10); White Blood Count 14.54 K/ul (4.8-10.8)
[2023-09-01 07:03] LABS: Albumin Globulin Ratio 1.8 (0.9-2); Albumin Level 4.3 gm/dl (3.4-5.0); BUN Creatinine Ratio 18.1 (10-20); Bilirubin,Total 0.5 mg/dl (0.2-1.0); Calcium 8.8 mg/dl (8.6-10.3); Creatinine Clr Calc Pharmacy 112.6 ml/min; Est GFR (African American) 123.2 ml/min; Est GFR (Non-African American) 106.3 ml/min; Globulin 2.4 gm/dl (2.5-4.0); Magnesium 2.2 mg/dl (1.7-2.4); Phosphorus 2.9 mg/dl (2.5-4.9); Potassium 3.9 mmol/L (3.5-5.1); Total Protein 6.7 gm/dl (6.0-8.3)
[2023-09-01] MEDS: ATORVASTATIN 20 MG TAB PO SCH (07:47)
[2023-09-01] MEDS: dexAMETHasone 6 MG in SYRINGE 0 ML IV SCH (07:47)
[2023-09-01] MEDS: PANTOprazole 40 MG TAB PO SCH (07:48)
[2023-09-01] MEDS: amLODIPine BESYLATE 5 MG TAB PO SCH (07:48)
--- NOTE | 2023-09-01 10:37 | Discharge Summary ---
Date of Service September 01, 2023 Admission HPI Per Admitting Provider This is a 47-year-old male presents for chronic persistent back and leg pain after failing course of nonoperative care is here for surgical invention. Principal Diagnosis Lumbar spinal stenosis with neurogenic claudication Discharge Data Allergies Allergy/AdvReac Type Severity Reaction Status Date / Time No Known Allergies Allergy Verified 08/30/23 09:07 Consultations 08/30/23 14:09 Consult Hospitalist Routine Procedures Performed Operation Date: 08/30/23 10:05 Actual Procedures p L3-L4 and L5-S1 Decompression, L3-S1 Fusion, Spinal Cord Monitoring(Not Applicable) - Roney Louise DO Ordered Studies 08/30/23 10:05 FL lumbar spine 2-3V Routine Hospital Course (1) Neurogenic claudication due to lumbar spinal stenosis: Patient underwent multilevel lumbar decompression fusion tolerated as well as negative orthopedic for postoperative. Postop day 1 is moving appropriately progressed to postop day #2 and 3 TIFFANIE drain decreased appropriately. Excellent strength testing. Pain well-controlled. Subsidy discharged home. Discharge orders instructions found in chart for further review. Total Time Total Time Spent Total Time Spent (In Minutes): 20 minutes Discharge Plan Discharge Items Patient Disposition: Hospice - Home Reason For Visit: Lumbar Region Spinal Stenosis with Radiculopathy, Discharge Diagnosis: Lumbar spinal stenosis with neurogenic claudication Activity: As commented below Non-emergency contact: Primary Care Provider Call non-emergency contact if: you have any medication questions Follow-up/Referrals: Mundo Luque MD [Primary Care Provider] - Diet: Regular Addtl Attending Provider Instructions: ACTIVITY RECOMMENDATIONS: SELF CARE INSTRUCTIONS AFTER THORACIC/LUMBAR FUSIONS 1. You may walk to your tolerance. It is good exercise for your legs and back. Expect some back and intermittent leg aches and pains. 2. You may perform "counter-top" level activities (make a sandwich, govind with a project, etc.). 3. No bending or lifting of more than 10 pounds or back twisting of any nature (roll like a log when turning in bed). 4. You may ride in a car for 20-30 minutes at a time. No driving until after your first visit with your doctor. 5. Frequent changes of position and restricting sitting to 30 minutes at a time will help limit the amount of back spasms and stiffness you may experience. 6. You may discontinue the use of ambulatory aids (cane, crutches, etc.) once your strength and confidence allow. 7. You may lead mechanical engineer the shower and let water strike your incision when you arrive home at least once daily. Do not take a tub bath, sit in a hot tub or go into a swimming pool until after your first recheck in the office. SPECIAL CARE INSTRUCTIONS: VERY IMPORTANT TO READ AND REVIEW A. Your surgical incision has been closed with a cosmetic suture under the skin that will dissolve in about 6 weeks. In 14 days, you can use a pair of clean scissors and cut the suture that is left outside of the skin at the ends of your incision. 1. The small skin tapes can be removed 7 days after surgery if they have not fallen off by that point. 2. You may keep the wound open to air as much as possible to promote healing after post-op day number 5 unless told otherwise by your doctor. 3. If you think the wound looks like it is becoming infected (redness or worsening drainage) and/or you are experiencing fever, chill or worsening back pain and muscle spasms, contact the office so that we may evaluate you as soon as possible. B. Complications are uncommon, but please contact us if you have any signs or symptoms of: 1. wound infection (fever higher than 102.5 degrees F, redness, separation of wound, drainage, or increasing pain from the incision) 2. blood clots in legs (pain, swelling, redness and warmth in legs) 3. urinary tract infection (fever higher than 102.5 degrees F, burning upon urination or increased frequency of urination) 4. nerve problems (inability to walk on your toes or heels, numbness, loss of bowel or bladder control) 5. any other symptoms that concern you C. Please call the office at if you have any concerns or qu estions about your operation or recovery. D. No smoking! Smoking drastically decreases the chance of a solid fusion. E. Do not take any anti-inflammatory medications (Indocin, Advil, Motrin, Aspirin, Naprosyn, etc.) as these may inhibit the chance of a solid fusion. Tylenol is okay to take for pain. MANAGING PAIN AFTER SPINAL SURGERY 1. Narcotic medication is intended for short-term use and will be provided for surgical pain. Surgical pain usually lasts for a period of 4-6 weeks. Narcotic medication includes Percocet, Vicodin, Darvocet, Tylenol #3 or Lortab. 2. Longer-term pain is more appropriately treated with non-narcotic medication such as Tylenol ES. 3. Muscle spasm is not appropriately treated with narcotics. Muscle relaxers such as Soma, Flexeril or Skelaxin can be used along with Tylenol ES. 4. Remember that we all live with some "aches and pains". This is not unusual or uncommon after an injury or as we get older. a. Back pain is expected and may include muscle spasms for 4 to 6 weeks after surgery. The pain should gradually improve. If the pain worsens for no apparent reason, please contact the office. b. Intermittent leg pain may also be experienced and should not be concerned about unless it worsens for no apparent reason. If so, please contact the office. 5. We will provide appropriate medication within the normal guidelines of their prescribed use. We will also be very cautious and aware of potential abuse and extended duration of patients' medication needs. a. Pain medications are for your comfort and to assist with sleep and rest so that the tissue can heal. They are not provided in order to return to normal activity and should not be used through the day. To do so or worsening pain at night can result from ongoing tissue damage and development of tolerance to the prescribed medicine. 6. Please allow 2-3 days to process refills. Prescriptions will not be mailed but must be picked up at the office. FOLLOW UP VISIT: Keep your scheduled follow-up appointment. Any questions, please call the office at . Pending Studies at Discharge: No Stand-Alone Forms: My [facility] Medications and DC Order Prescriptions: New tramadol 50 mg tablet 50 mg PO Q6H PRN (Reason: pain, moderate) Qty: 30 0RF oxycodone 5 mg tablet 5 mg PO Q6H PRN (Reason: pain) Qty: 30 0RF Continued atorvastatin 20 mg Tablet 20 mg PO QAM meloxicam 15 mg Tablet 15 mg PO QAM amlodipine 5 mg Tablet 5 mg PO QAM pantoprazole [Protonix] 40 mg Tablet,Delayed Release (Dr/Ec) 40 mg PO QAM losartan-hydrochlorothiazide 50-12.5 mg Tablet 1 tab PO QAM Multivitamin Gummies 200 mcg Tablet,Chewable 1 tab PO QAM Discharge Orders: Discharge Order (Routine); Ordered 09/01/23 Ordered By: Roney Louise Admission Data Admit Date/Time: 08/30/23 12:52 Attending Provider: Roney Louise Admit Provider: Roney Louise Primary Care Provider: Mundo Luque Other Providers: Sandrine Esqueda; Ana Ocampo; Raya Rodriguez
--- NOTE | 2023-09-01 13:12 | Hospitalist Progress Note ---
Date of Service September 01, 2023 Assessment & Plan (1) Neurogenic claudication due to lumbar spinal stenosis: Plan: Status post L3-L4 and L5-S1 decompression, L3-S1 fusion and spinal cord monitoring on 08/30/2023 Per ortho for pain control, wound care, anticoagulation and activities No recurrence of nausea Post op blood loss anemia Hgb stable at 12.1 (from 11.9 yesterday) Tachycardic but denies lightheadedness, CP, SOB Continue to monitor with daily CBC (2) HTN (hypertension): Plan: Blood pressure remains stable Resumed losartan-hctz this morning (3) Hyperlipidemia: Plan: Has been on statin (4) GERD (gastroesophageal reflux disease): Plan: Has been on PPI DVT prophylaxis As per Ortho CODE STATUS Full Patient seen in collaboration with Dr. Ocampo. Please see addendum. Thank you for this consultation. We will follow the patient with you during their hospital stay. You can reach a member of the [facility] Team 10/04 via [employer]. Admission and Anticipated Discharge Date Admission Date: August 30, 2023 Supervising Physician Co-Signing Physician Notes Pt seen and examined by myself, Ana Ocampo MD on the day of service. Care was coordinated with Raya Rodriguez PA-C. 47yoM seen after decompression and fusion spinal surgery. Denied acute concerns. RRR, breath sounds clear Monitor postop hgb, pain control DVT prophylaxis per primary team. Recommend oral calcium supplements for noted hypocalcemia. Otherwise as above Subjective Patient seen and examined in 312 in follow-up for L3-S1 decomp fusion by Dr. Louise. [place] improved overnight and continues to ambulate in the halls. Denies any fever, chills, lightheadedness, chest pain, shortness of breath, nausea, vomiting, abdominal pain, dysuria. Urinating without issue, passing flatus no BM. Review of Systems Review of Systems: At least ten systems reviewed and negative except as noted in the HPI. Physical Exam Physical Exam: Gen: WD/WN, NAD, sitting in bedside chair, A&Ox3 HEENT: Normocephalic, atraumatic, conjunctivae moist, sclerae anicteric, mucous membranes moist Lung: Clear to Auscultation bilaterally, no wheezes/rales/rhonchi Heart: Tachycardic rate, regular rhythm, no murmurs, rubs, or gallops Abdomen: Soft, NT, ND +BS x 4 Extremities: +Spinal surgical dressing c/d/i. TIFFANIE drain visualized, no edema Skin: Warm, no rash Results & Data Results & Data Vital Signs (Past 12 Hours) Vital Signs Temp Pulse Resp BP Pulse Ox O2 Del Method 09/01/23 07:02 36.6 C 93 H 16 145/89 H 98 Room Air Laboratory Results Short CBC 09/01/23 Range/Units 06:02 WBC 14.54 H (4.8-10.8) K/ul Hgb 12.1 L (14.0-18.0) g/dl Hct 35.1 L (42.0-52.0) % Plt Count 217 (130-400) K/uL BMP 09/01/23 06:02 Sodium 137 Potassium 3.9 Chloride 102 Carbon Dioxide 29 BUN 15 Creatinine 0.83 Glucose 107 H Calcium 8.8 Liver Function 09/01/23 Range/Units 06:02 Total Bilirubin 0.5 (0.2-1.0) mg/dl AST 22 (13-39) U/L ALT 25 (7-52) U/L Alkaline Phosphatase 36 (34-104) U/L Albumin 4.3 (3.4-5.0) gm/dl Diagnostic Findings Lumbar Spine X-Ray 08/30/23 10:05 FL lumbar spine 2-3V CLINICAL HISTORY: L3-L4 AND L5-S1 DECOMPRESSION AND FUSION COMPARISON STUDY: 02/24/2014 FLUOROSCOPY TIME: 31.3 seconds FLUOROSCOPY IMAGES: 2 EXPOSURE DOSE: 21.49 mGy FINDINGS: Posterior interbody rods and screw fusion hardware L3-S1 with L3-L4 and L5-S1 discectomy. Hardware appears intact. No acute fracture or unexpected opaque foreign body. IMPRESSION: Fluoroscopic assistance as above. ACT 112: Negative or not required by law. Electronically signed by: Aquiles Haywood M.D. 08/30/2023 12:59 PM
== END 2023-09-01 14:03 | disposition home or self-care (01) | DRG 454 ==
LOC: ASU 08:25 → 3E 12:52